=== PATIENT | male | born 1945 | race Caucasian/White ===

== ENCOUNTER → 2019-08-10 | Outpatient (CLI) | payer MEDICARE ==
[~2019-08-10] MED LIST: HYDR1TAB94 PO; Lipitor20 MG PO; PRED10 PO; Prinivil10 MG
== END | disposition home or self-care (01) ==
LOC: LAB SHORT 10:27 → LAB EV 10:27
DX: L98.9 Disorder of the skin and subcutaneous tissue, unspecified (principal)
CPT/HCPCS: 87070; 87205; 87252; 87254

== ENCOUNTER 2019-09-11 08:59 | Emergency (ER) | payer MEDICARE ==
[~2019-09-11] VITALS: Ht 172.7 cm; Wt 90.7 kg
[2019-09-11] MEDS ORDERED: Prinivil10 MG (10:13)
[2019-09-11] MEDS ORDERED: Lipitor20 MG PO (10:13)
[2019-09-11 10:55] LABS: BASOPHILS ABSOLUTE AUTO 0.05 K/mm3 (0.00-0.23); BASOPHILS PERCENT AUTO 1 % (0-2); EOSINOPHILS ABSOLUTE AUTO 0.17 K/mm3 (0.00-0.68); EOSINOPHILS PERCENT AUTO 2 % (0-6); Hematocrit 42.8 % (37.0-53.0); Hemoglobin 14.2 g/dL (13.5-17.5); IMMATURE GRAN ABSOLUTE AUTO 0.03 K/mm3 (0.00-0.10); IMMATURE GRAN PERCENT AUTO 0 % (0-1); LYMPHOCYTES ABSOLUTE AUTO 1.09 K/mm3 (0.84-5.20); LYMPHOCYTES PERCENT AUTO 14 % (21-46); MONOCYTES PERCENT AUTO 11 % (4-13); Mean Corpuscular HGB 30.4 pg (26.0-34.0); Mean Corpuscular HGB Conc 33.2 g/dL (31.5-36.5); Mean Corpuscular Volume 92 fL (80-100); Mean Platelet Volume 10.1 fL (9.1-12.4); NEUTROPHILS PERCENT AUTO 72 % (41-73); Platelet Count 248 K/mm3 (150-400); RDW Coefficient Variation 12.2 % (11.7-14.2); RDW Standard Deviation 40.9 fL (35.1-46.3); Red Blood Cell Count 4.67 M/mm3 (4.30-5.90); White Blood Cell Count 7.64 K/mm3 (4.00-11.30)
[2019-09-11] MEDS ORDERED: PRED10 PO (11:21)
[2019-09-11] MEDS ORDERED: HYDR1TAB94 PO (11:25)
== END 2019-09-11 11:36 | disposition home or self-care (01) ==
LOC: ER 08:59
PROVIDERS: Physician Assistant
DX: M79.672 Pain in left foot (principal); M79.671 Pain in right foot; Z79.899 Other long term (current) drug therapy; Z79.52 Long term (current) use of systemic steroids
CPT/HCPCS: 36415; 84550; 85025; 96372; 99283-25; J1885

== ENCOUNTER 2020-03-07 08:12 | Day surgery (SDC) | payer MEDICARE ==
[~2020-03-07] VITALS: Ht 172.7 cm; Wt 90.4 kg
[~2020-03-07 08:12] MED LIST changes: -Prinivil10 MG; +Prinivil10 MG PO
--- NOTE | 2020-03-07 12:30 | NUR ---
PT RETURNED TO RECOVERY ROOM IN BED. LEFT FEMORAL GROIN SITE SOFT NON TENDER WITH NO HEMATOMA AND NO PULSATILE BLEEDING. RIGHT PT ATTEMPTED PEDAL ACCESS SITE NO BLEEDING NO HEMATOMA AND INTACT POLYMEM IN PLACE. CALL LIGHT IN REACH.
[2020-03-07] MEDS ORDERED: CLOP75 PO (12:47)
--- NOTE | 2020-03-07 12:53 | NUR ---
PT EATING LUNCH.
--- NOTE | 2020-03-07 13:07 | NUR ---
NO CHANGES TO LEFT GROIN SITE.
--- NOTE | 2020-03-07 13:27 | NUR ---
NO CHANGES TO LEFT GROIN SITE; LEFT DP DOPPLER.
--- NOTE | 2020-03-07 14:13 | NUR ---
DISCHARGE INSTRUCTIONS REVIEWED ALL QUESTIONS ANSWERED. NO CHANGES TO LEFT GROIN SITE. LEFT DP DOPPLER.
--- NOTE | 2020-03-07 14:30 | NUR ---
NO CHANGES TO LEFT GROIN SITE.
--- NOTE | 2020-03-07 14:48 | NUR ---
NO CHANGES TO LEFT GROIN SITE OR RIGHT PT ATTEMPTED PEDAL ACCESS SITE; NO BLEEDING, NO HEMATOMAS. 20 G IV DISCONTINUED FROM LEFT AC WITH INTACT CANNULA.
--- NOTE | 2020-03-07 15:08 | NUR ---
PT STATES HIS RIGHT CALF IS SORE. DR OSEI AWARE AND WANTS PT TO PLACE WARM COMPRESS OVER RIGHT CALF WHEN PT GETS HOME. PT ESCORTED OUT VIA WHEELCHAIR ESCORT.
== END 2020-03-07 15:00 | disposition home or self-care (01) ==
LOC: MHTC 08:12
DX: I70.213 Atherosclerosis of native arteries of extremities with intermittent claudication, bilateral legs (principal); I10 Essential (primary) hypertension; E78.00 Pure hypercholesterolemia, unspecified
CPT/HCPCS: 85347; 99152; 99153; C1760; C1769; C1874; C1887; C1894; C2623; J1644; J2250; J3010; J7030; Q9967

== ENCOUNTER 2020-05-09 05:52 | Day surgery (SDC) | payer MEDICARE ==
[~2020-05-09] VITALS: Ht 172.7 cm; Wt 90.2 kg
[~2020-05-09 05:52] MED LIST changes: +CLOP75 PO
[2020-05-09 06:53] LABS: BASOPHILS ABSOLUTE AUTO 0.07 K/mm3 (0.00-0.23); BASOPHILS PERCENT AUTO 1 % (0-2); EOSINOPHILS ABSOLUTE AUTO 0.34 K/mm3 (0.00-0.68); EOSINOPHILS PERCENT AUTO 5 % (0-6); Hematocrit 45.3 % (37.0-53.0); Hemoglobin 14.9 g/dL (13.5-17.5); IMMATURE GRAN ABSOLUTE AUTO 0.03 K/mm3 (0.00-0.10); IMMATURE GRAN PERCENT AUTO 0 % (0-1); LYMPHOCYTES ABSOLUTE AUTO 1.33 K/mm3 (0.84-5.20); LYMPHOCYTES PERCENT AUTO 19 % (21-46); MONOCYTES ABSOLUTE AUTO 0.66 K/mm3 (0.16-1.47); MONOCYTES PERCENT AUTO 9 % (4-13); Mean Corpuscular HGB 30.1 pg (26.0-34.0); Mean Corpuscular HGB Conc 32.9 g/dL (31.5-36.5); Mean Corpuscular Volume 92 fL (80-100); Mean Platelet Volume 9.8 fL (9.1-12.4); NEUTROPHILS ABSOLUTE AUTO 4.69 K/mm3 (1.96-9.15); NEUTROPHILS PERCENT AUTO 66 % (41-73); Platelet Count 263 K/mm3 (150-400); RDW Coefficient Variation 12.2 % (11.7-14.2); RDW Standard Deviation 41.3 fL (35.1-46.3); Red Blood Cell Count 4.95 M/mm3 (4.30-5.90); White Blood Cell Count 7.12 K/mm3 (4.00-11.30)
[2020-05-09 07:12] LABS: Anion Gap 7 mmol/L (6-16); Blood Urea Nitrogen 14 mg/dL (8-24); Bun/Creatinine Ratio 13.5 (12.0-20.0); CO2, Blood 24 mmol/L (21-32); Chloride, Blood 109 mmol/L (98-108); Creatinine, Blood 1.04 mg/dL (0.60-1.20); Glomerular Filtration Rate >60 (60-); Glucose, Blood 106 mg/dL (70-99); Potassium, Blood 4.5 mmol/L (3.5-5.5); Sodium, Blood 140 mmol/L (136-145)
[2020-05-09 07:15] LABS: International Normalized Ratio 0.96; Prothrombin Time Results 10.3 Sec (9.7-11.5)
--- NOTE | 2020-05-09 10:46 | NUR ---
1005 PATIENT RETURNED FRMO THE [facility] POST PROCEDURE. RIGHT GROIN SITE WITH ANGIOSEAL AND TEGADERM DRESSING CDI, AND LEFT PEDAL PT SITE WITH JOSH PATCH AND TEGADERM DRESSING ALSO CDI. NO PAIN. PEDAL PULSES PALPABLE. JUICE AT THE BEDSIDE AND DIET ORDERED. PATIENT PLACED ON THE MONITOR AND CALL LIGHT IN REACH.
--- NOTE | 2020-05-09 12:04 | NUR ---
1200 PATIENT SAT UP IN THE BED AND TRAY SERVED. FEEDING SELF. RIGHT GROINA ND LEFT FOOT DRESSINGS CDI, PULSES PALPABLE AND NO PAIN NOTED. CONTINUE TO MONITOR.
--- NOTE | 2020-05-09 13:38 | NUR ---
1300 PATIENT UP AND VOIDED. DRESSED AFTER SITES CHECKED AND TEACHING DONE. DOES NOT HAVE A RIDE HOME UNTIL CLOSER TO 1430. REVIEWED ALL DISCHARGE INSTRUCTIONS AND SIGNATURES OBTAINED. ALL QUESTIONS ANSWERED. NO C/O PAIN AT THIS TIME.
--- NOTE | 2020-05-09 13:51 | NUR ---
135 PATIENT READY FOR DISCHARGE EXCEPT FOR PIV IN PLACE. ALL BELONGINGS RETAINED. AWAITING RIDE TO CALL/ARRIVE.
--- NOTE | 2020-05-09 14:12 | NUR ---
1410 PIV REMOVED AND DRESSING APPLIED, PATEITN DISCHARGED WITH ALL BELONGINGS. NO PAIN AND FOLLOW UP APPOINTMENT IN SIX WEEKS.
== END 2020-05-09 14:17 | disposition home or self-care (01) ==
LOC: MHTC 05:52
PROVIDERS: Radiology Diagnostic Radiology
DX: I70.212 Atherosclerosis of native arteries of extremities with intermittent claudication, left leg (principal); I10 Essential (primary) hypertension; E78.00 Pure hypercholesterolemia, unspecified; Z79.899 Other long term (current) drug therapy
CPT/HCPCS: 37224; 37229; 37232; 75716; 75774; 76937; 80048; 85025; 85347; 85610; 99152; 99153; C1725; C1760; C1769; C1885; C1887; C1894; C2623; J1644; J2250; J3010; J7030; Q9967

== ENCOUNTER 2020-05-17 16:58 | Emergency (ER) | payer OTHER, MEDICARE ==
[~2020-05-17] VITALS: Ht 172.7 cm; Wt 88.5 kg
== END 2020-05-17 17:36 | disposition home or self-care (01) ==
LOC: ER 16:58
DX: M79.672 Pain in left foot (principal); Z79.899 Other long term (current) drug therapy
CPT/HCPCS: 99282-25

== ENCOUNTER → 2021-06-16 | Outpatient (CLI) | payer MEDICARE ==
[2021-06-16 19:48] LABS: BASOPHILS ABSOLUTE AUTO 0.06 K/mm3 (0.00-0.23); BASOPHILS PERCENT AUTO 1 % (0-2); EOSINOPHILS ABSOLUTE AUTO 0.17 K/mm3 (0.00-0.68); EOSINOPHILS PERCENT AUTO 2 % (0-6); Hematocrit 43.5 % (37.0-53.0); Hemoglobin 14.9 g/dL (13.5-17.5); IMMATURE GRAN ABSOLUTE AUTO 0.03 K/mm3 (0.00-0.10); IMMATURE GRAN PERCENT AUTO 0 % (0-1); LYMPHOCYTES PERCENT AUTO 17 % (21-46); MONOCYTES ABSOLUTE AUTO 0.49 K/mm3 (0.16-1.47); MONOCYTES PERCENT AUTO 7 % (4-13); Mean Corpuscular HGB 30.8 pg (26.0-34.0); Mean Corpuscular HGB Conc 34.3 g/dL (31.5-36.5); Mean Corpuscular Volume 90 fL (80-100); NEUTROPHILS ABSOLUTE AUTO 4.99 K/mm3 (1.96-9.15); NEUTROPHILS PERCENT AUTO 72 % (41-73); Platelet Count 311 K/mm3 (150-400); RDW Standard Deviation 39.8 fL (35.1-46.3); Red Blood Cell Count 4.84 M/mm3 (4.30-5.90); White Blood Cell Count 6.94 K/mm3 (4.00-11.30)
[2021-06-16 20:05] LABS: Alanine Aminotransfer (ALT/SGP 41 U/L (12-78); Alk Phos 134 U/L (50-136); Anion Gap 6 mmol/L (6-16); Aspartate Aminotrans (AST/SGOT 21 U/L (12-37); Bilirubin, Total 0.5 mg/dL (0.1-1.0); Blood Urea Nitrogen 9 mg/dL (8-24); Bun/Creatinine Ratio 8.7 (12.0-20.0); CO2, Blood 26 mmol/L (21-32); Calcium, Blood 8.5 mg/dL (8.5-10.1); Chloride, Blood 103 mmol/L (98-108); Creatinine, Blood 1.04 mg/dL (0.60-1.20); Globulin, Blood 3.9 g/dL (2.2-4.0); Glomerular Filtration Rate >60 (60-); Glucose, Blood 85 mg/dL (70-99); Potassium, Blood 3.9 mmol/L (3.5-5.5); Sodium, Blood 135 mmol/L (136-145); Total Protein, Blood 7.9 g/dL (6.4-8.2)
[2021-06-16 20:14] LABS: CHOL/HDL RATIO 5.7; Cholesterol 227 mg/dL (50-200); HDL Cholesterol 40 mg/dL (>39); Low Density Lipoprotein Chol 119 mg/dL (0-110); Triglycerides 338 mg/dL (30-160); Very Low Density Lipoprot Chol 67 mg/dL (6-32)
== END | disposition home or self-care (01) ==
LOC: LAB 17:00 → LAB SHORT 17:00
PROVIDERS: Nurse Practitioner
DX: E78.5 Hyperlipidemia, unspecified (principal); G47.10 Hypersomnia, unspecified; R53.83 Other fatigue; E66.9 Obesity, unspecified; I10 Essential (primary) hypertension; Z68.31 Body mass index [BMI] 31.0-31.9, adult
CPT/HCPCS: 80053; 80061; 82306; 84443; 85025

== ENCOUNTER → 2023-06-09 | Outpatient (CLI) | payer MEDICARE ==
[~2023-06-09] MED LIST changes: +ALLO100 PO; +Amlodipine Bes2.5 MG PO; +Aspir 8181 MG PO; +FLUC200 PO; +HYDCHL25 PO; +Inderal60 MG PO; +KETO10 PO; +LISI20 PO; +PRED20 PO; +Primidone50 MG PO; +TAMS.4ER PO
[2023-06-09 14:35] LABS: BASOPHILS ABSOLUTE AUTO 0.05 K/mm3 (0.00-0.23); BASOPHILS PERCENT AUTO 0 % (0-2); EOSINOPHILS ABSOLUTE AUTO 0.08 K/mm3 (0.00-0.68); EOSINOPHILS PERCENT AUTO 1 % (0-6); Hematocrit 36.8 % (37.0-53.0); Hemoglobin 12.7 g/dL (13.5-17.5); IMMATURE GRAN ABSOLUTE AUTO 0.04 K/mm3 (0.00-0.10); IMMATURE GRAN PERCENT AUTO 0 % (0-1); LYMPHOCYTES ABSOLUTE AUTO 0.96 K/mm3 (0.84-5.20); LYMPHOCYTES PERCENT AUTO 7 % (21-46); MONOCYTES ABSOLUTE AUTO 1.34 K/mm3 (0.16-1.47); MONOCYTES PERCENT AUTO 10 % (4-13); Mean Corpuscular HGB Conc 34.5 g/dL (31.5-36.5); Mean Corpuscular Volume 87 fL (80-100); Mean Platelet Volume 10.8 fL (9.1-12.4); NEUTROPHILS ABSOLUTE AUTO 10.57 K/mm3 (1.96-9.15); NEUTROPHILS PERCENT AUTO 81 % (41-73); Platelet Count 298 K/mm3 (150-400); RDW Coefficient Variation 12.5 % (11.7-14.2); RDW Standard Deviation 39.5 fL (35.1-46.3); Red Blood Cell Count 4.24 M/mm3 (4.30-5.90); White Blood Cell Count 13.04 K/mm3 (4.00-11.30)
[2023-06-09 14:48] LABS: Albumin, Blood 3.4 g/dL (3.4-5.0); Albumin/Globulin Ratio 0.9 (0.8-1.8); Bilirubin, Total 0.5 mg/dL (0.1-1.0); Bun/Creatinine Ratio 16.5 (12.0-20.0); Calcium, Blood 8.7 mg/dL (8.5-10.1); Creatinine, Blood 1.39 mg/dL (0.60-1.20); Globulin, Blood 3.9 g/dL (2.2-4.0); Potassium, Blood 4.6 mmol/L (3.5-5.5); Total Protein, Blood 7.3 g/dL (6.4-8.2); Uric Acid, Blood 6.8 mg/dL (3.5-7.2)
== END ==
LOC: LAB 14:28 → LAB SHORT 14:28
PROVIDERS: Chiropractor
DX: R50.9 Fever, unspecified (principal); M25.422 Effusion, left elbow
CPT/HCPCS: 80053; 84550; 85025

== ENCOUNTER 2023-06-10 15:40 | Inpatient (IN) | payer OTHER ==
[~2023-06-10] VITALS: Ht 177.8 cm; Wt 78.2 kg
[~2023-06-10 15:40] MED LIST changes: -ALLO100 PO; -Amlodipine Bes2.5 MG PO; -Aspir 8181 MG PO; -FLUC200 PO; -HYDCHL25 PO; -Inderal60 MG PO; -KETO10 PO; -LISI20 PO; -PRED20 PO; -Primidone50 MG PO; -TAMS.4ER PO
[2023-06-10 17:41] LABS: BASOPHILS ABSOLUTE AUTO 0.05 K/mm3 (0.00-0.23); BASOPHILS PERCENT AUTO 1 % (0-2); EOSINOPHILS ABSOLUTE AUTO 0.12 K/mm3 (0.00-0.68); EOSINOPHILS PERCENT AUTO 1 % (0-6); Hematocrit 40.8 % (37.0-53.0); Hemoglobin 13.2 g/dL (13.5-17.5); IMMATURE GRAN ABSOLUTE AUTO 0.04 K/mm3 (0.00-0.10); IMMATURE GRAN PERCENT AUTO 0 % (0-1); LYMPHOCYTES ABSOLUTE AUTO 1.13 K/mm3 (0.84-5.20); LYMPHOCYTES PERCENT AUTO 11 % (21-46); MONOCYTES ABSOLUTE AUTO 1.16 K/mm3 (0.16-1.47); MONOCYTES PERCENT AUTO 11 % (4-13); Mean Corpuscular HGB 29.4 pg (26.0-34.0); Mean Corpuscular HGB Conc 32.4 g/dL (31.5-36.5); Mean Corpuscular Volume 91 fL (80-100); Mean Platelet Volume 11.3 fL (9.1-12.4); NEUTROPHILS ABSOLUTE AUTO 8.06 K/mm3 (1.96-9.15); NEUTROPHILS PERCENT AUTO 76 % (41-73); Platelet Count 262 K/mm3 (150-400); RDW Coefficient Variation 12.5 % (11.7-14.2); Red Blood Cell Count 4.49 M/mm3 (4.30-5.90); White Blood Cell Count 10.56 K/mm3 (4.00-11.30)
[2023-06-10 18:01] LABS: Albumin, Blood 3.4 g/dL (3.4-5.0); Albumin/Globulin Ratio 0.7 (0.8-1.8); Bilirubin, Total 0.3 mg/dL (0.1-1.0); Calcium, Blood 8.6 mg/dL (8.5-10.1); Creatinine, Blood 1.38 mg/dL (0.60-1.20); Globulin, Blood 4.6 g/dL (2.2-4.0); Potassium, Blood 5.4 mmol/L (3.5-5.5)
[2023-06-10] MEDS ORDERED: Inderal60 MG PO (19:34)
[2023-06-10] MEDS ORDERED: Primidone50 MG PO (19:35)
[2023-06-10] MEDS ORDERED: TAMS.4ER PO (19:36)
[2023-06-10] MEDS ORDERED: FLUC200 PO (19:36)
[2023-06-10] MEDS ORDERED: HYDCHL25 PO (19:36)
[2023-06-10] MEDS ORDERED: LISI20 PO (19:36)
[2023-06-10] MEDS ORDERED: Amlodipine Bes2.5 MG PO (19:37)
[2023-06-10 21:53] LABS: Body Fluid Crystals POS (NEGATIVE)
[2023-06-10 22:01] LABS: Automated BF RBC Count 0.004 M/mm3 (0-0)
[2023-06-10 22:11] LABS: Automated BF WBC Count 32.564 K/mm3 (0-999); Body Fluid WBC Count 32564 /mm3 (0-999); RBC Count, Body Fluid 4000 /mm3 (0-0)
[2023-06-10 23:34] LABS: Appearance, Body Fluid Cloudy (Clear); Color, Body Fluid Yellow (None-Yellow); Total Cell Count, Body Fluid 100
[2023-06-11 00:39] VITALS: BP 144/60
[2023-06-11 04:42] VITALS: BP 128/69
[2023-06-11 05:47] LABS: BASOPHILS ABSOLUTE AUTO 0.01 K/mm3 (0.00-0.23); BASOPHILS PERCENT AUTO 0 % (0-2); EOSINOPHILS ABSOLUTE AUTO 0.01 K/mm3 (0.00-0.68); EOSINOPHILS PERCENT AUTO 0 % (0-6); Hematocrit 35.2 % (37.0-53.0); Hemoglobin 11.9 g/dL (13.5-17.5); IMMATURE GRAN ABSOLUTE AUTO 0.03 K/mm3 (0.00-0.10); IMMATURE GRAN PERCENT AUTO 0 % (0-1); LYMPHOCYTES PERCENT AUTO 5 % (21-46); MONOCYTES ABSOLUTE AUTO 0.16 K/mm3 (0.16-1.47); MONOCYTES PERCENT AUTO 2 % (4-13); Mean Corpuscular HGB 29.4 pg (26.0-34.0); Mean Corpuscular HGB Conc 33.8 g/dL (31.5-36.5); Mean Corpuscular Volume 87 fL (80-100); Mean Platelet Volume 10.9 fL (9.1-12.4); NEUTROPHILS ABSOLUTE AUTO 7.08 K/mm3 (1.96-9.15); NEUTROPHILS PERCENT AUTO 92 % (41-73); Platelet Count 249 K/mm3 (150-400); RDW Coefficient Variation 12.4 % (11.7-14.2); RDW Standard Deviation 39.8 fL (35.1-46.3); Red Blood Cell Count 4.05 M/mm3 (4.30-5.90); White Blood Cell Count 7.69 K/mm3 (4.00-11.30)
[2023-06-11 06:18] LABS: Albumin, Blood 2.9 g/dL (3.4-5.0); Albumin/Globulin Ratio 0.7 (0.8-1.8); Bilirubin, Total 0.2 mg/dL (0.1-1.0); Bun/Creatinine Ratio 21.6 (12.0-20.0); Calcium, Blood 8.5 mg/dL (8.5-10.1); Creatinine, Blood 1.53 mg/dL (0.60-1.20); Potassium, Blood 4.9 mmol/L (3.5-5.5); Total Protein, Blood 6.9 g/dL (6.4-8.2)
[2023-06-11 07:10] VITALS: BP 133/74
--- NOTE | 2023-06-11 07:39 | NUR ---
SHIFT SUMMERY, PT ARRIVED TO FLOOR AND TRANSFRED TO BED. PT IS ALERT AND ORIENTED. PT GIVEN FOOD TO EAT THEN PT FELL ASLEEP. PT SEEMS TO HAVE RESTED IN BED AND SEEMS TO HAVE SLEPT AT LEAST A LITTLE. PT GIVEN INFORMATION ON FIRE SAFTY AND WHIT ITEMD NOT SAFE TO HAVE AROUNG O2. PT VU. CALL LIGHT IN REACH.
[2023-06-11] MEDS ORDERED: Aspir 8181 MG PO (12:58)
[2023-06-11] MEDS ORDERED: Inderal60 MG PO (12:58)
[2023-06-11 14:23] VITALS: BP 112/61
[2023-06-11 15:56] VITALS: BP 132/66
--- NOTE | 2023-06-11 17:31 | NUR ---
SHIFT SUMMARY PATIENT WIH NO ACUT EVENTS TODAY, PAIN CONTROLLED WITH MEDICATIONS PER EMAR. PATIENT INCREASING ABILITY TO EXTEND LEFT ARM ALMOST TO FULL EXTENSION THIS EVENING, WAS CONTRACTED THIS MORNING. PATIENT UP TO USE URINAL STANDING AND SBA TO BATHROOM.
[2023-06-11 19:06] VITALS: BP 133/66
[2023-06-12 04:16] VITALS: BP 126/62
[2023-06-12 07:52] VITALS: BP 138/72
--- NOTE | 2023-06-12 08:19 | NUR ---
SHIFT SUMMARY PATIENT ALERT, PLEASANT AND COOPERTIVE WITH ALL CARES. WITHOUT C/O PAIN THROUGHOUT SHIFT TILL RIGHT AT SHIFT CHANGE. LEFT ELBOW CONTINUES TO BE SWOLLEN. NO ACUTE CHANGES OVERNIGHT. CONTINUES ON IV ABX WITHOUT ANY APPARENT ASE NOTED. EDUCATED ON FIRE SAFETY AND RISK OF INJURY R/T OXYGEN USE, VERBALIZED UNDERSTANDING, DENIES SMOKING NOR HAVING ANY SOURCES OF IGNITION. BED IN LOW POSITION, CALL LIGHT WITHIN REACH.
[2023-06-12] MEDS ORDERED: ALLO100 PO (13:19)
[2023-06-12] MEDS ORDERED: KETO10 PO (13:19)
[2023-06-12] MEDS ORDERED: PRED20 PO (13:20)
--- NOTE | 2023-06-12 18:36 | NUR ---
DISCHARGE SUMMARY PATIENT WITH NO ACUTE EVENTS DURING THIS SHIFT. PAIN CONTINUES IN LEFT ELBOW, MEDICATED PER EMAR WITH SOME RELIEF. PATIENT MEDICATION AND EDUACATION PACKET PRINTED AND CONSENTS SIGNED BY PATIENT. PATIENT LEFT UNIT VIA WHEELCHAIR WITH CHRISSY MILNER AT 1430 ON 06/12/23 AND PICKED UP VIA PRIVATE VEHICLE BY FAMILY. PATIENT ROUNDED ON HOURLY AND EDUCATED ON FIRE SAFTETY DURING SHIFT.
== END 2023-06-12 14:53 | disposition home or self-care (01) | DRG 554 ==
LOC: ER 15:40 → MEDS 15:41 → ENPENDDIS 06-12 13:00 → MEDS 06-12 14:53
PROVIDERS: Family Medicine; Physician Assistant; Student in an Organized Health Care Education/Training Program; ADMIT Internal Medicine
PROC: 0R9M3ZZ Drainage of Left Elbow Joint, Percutaneous Approach (ICD-10-PCS; principal; 2023-06-10)
DX: M10.9 Gout, unspecified (principal); M25.422 Effusion, left elbow; E78.5 Hyperlipidemia, unspecified; G25.0 Essential tremor; I73.9 Peripheral vascular disease, unspecified; N40.0 Benign prostatic hyperplasia without lower urinary tract symptoms; G89.29 Other chronic pain; M54.9 Dorsalgia, unspecified; I12.9 Hypertensive chronic kidney disease with stage 1 through stage 4 chronic kidney disease, or unspecified chronic kidney disease; N18.30 Chronic kidney disease, stage 3 unspecified; Z79.811 Long term (current) use of aromatase inhibitors; Z79.899 Other long term (current) drug therapy
CPT/HCPCS: 20605; 36415; 73201; 80053; 83605; 85025; 85651; 86141; 87070; 87075; 87205; 89051; 89060; 96365-59; 96366; 96367-59; 96372; 96375-59; 96376; 96376-59; 99284-25; A9270; G0378; J0690; J0696; J1650; J1885; J2930; J3010; J3370; J7050; Q9967

== ENCOUNTER 2023-09-16 10:17 | Emergency (ER) | payer OTHER ==
[~2023-09-16] VITALS: Ht 172.7 cm; Wt 86.2 kg
[~2023-09-16 10:17] MED LIST changes: +ALLO100 PO; +Amlodipine Bes2.5 MG PO; +Aspir 8181 MG PO; +FLUC200 PO; +HYDCHL25 PO; +Inderal60 MG PO; +KETO10 PO; +LISI20 PO; +PRED20 PO; +Primidone50 MG PO; +TAMS.4ER PO
[2023-09-16 10:58] VITALS: BP 118/77
== END 2023-09-16 11:18 | disposition home or self-care (01) ==
LOC: ER 10:17
DX: H92.01 Otalgia, right ear (principal); I10 Essential (primary) hypertension; M10.9 Gout, unspecified; E78.00 Pure hypercholesterolemia, unspecified; N40.0 Benign prostatic hyperplasia without lower urinary tract symptoms; Z79.899 Other long term (current) drug therapy; Z79.82 Long term (current) use of aspirin; Z79.52 Long term (current) use of systemic steroids
CPT/HCPCS: 99282